=== PATIENT | male | born 1970 | race Caucasian/White ===

== ENCOUNTER 2022-02-22 09:05 | Emergency (ER) | payer OTHER ==
[~2022-02-22] VITALS: Ht 172.7 cm; Wt 99.8 kg
[2022-02-22 09:11] VITALS: BP 140/95
--- NOTE | 2022-02-22 09:16 | NUR ---
PT AMBULATED TO BED 07.
--- NOTE | 2022-02-22 09:33 | NUR ---
PT IN GOWN URINE OBTAINED
--- NOTE | 2022-02-22 09:42 | NUR ---
51YR OLD MALE BIB SELF C/O URINARY CATH PROBLEM/URGENCY X1WEEK. PT IS STATING THAT HIS TAYLOR NEEDS TO BE CHANGED. URGENCY WITH URINATION. 9/10 PAIN LEVEL. FLANK PAIN RADTIATES TO LUQ. SX FOR 1WEEK. A&OX4 NO DISTRESS NOTED. DENIES ABD PAIN V/D. PT IN GOWN RESTING IN BED. SIDE RAILS UPX1. NKDA
[2022-02-22] MEDS ORDERED: cephALEXin 500 MG CAP PO ONE (09:55)
[2022-02-22] MEDS ORDERED: COMMUNICATION ORDER MC ONE (10:20)
[2022-02-22] MEDS ORDERED: cefTRIAXone 1,000 MG VIAL ONE (10:26)
[2022-02-22] MEDS ORDERED: LIDOCAINE 2% 100 MG/5 ML UJET TP ONE (10:28)
--- NOTE | 2022-02-22 10:51 | NUR ---
TAYLOR REPLACED 16F. PATIENT TOLERATED INSERTION.
--- NOTE | 2022-02-22 11:51 | NUR ---
PENDING DC PAPERWORK
[2022-02-22] MEDS ORDERED: CEFP200T20 PO (12:29)
[2022-02-22 12:39] VITALS: BP 144/95
--- NOTE | 2022-02-22 12:39 | NUR ---
Patient discharged with v/s stable. Written and verbal after care instructions given and explained. Patient alert, oriented and verbalized understanding of instructions. Ambulatory with steady gait. All questions addressed prior to discharge. ID band removed. Patient advised to follow up with PMD. Rx of CEFPODOXIME given. Patient educated on indication of medication including possible reaction and side effects. Opportunity to ask questions provided and answered.
[2022-02-22 13:34] LABS: APPEARANCE,URINE CLOUDY (CLEAR); BILIRUBIN,URINE 1+ (NEGATIVE); BLOOD, URINE 3+ (NEGATIVE); COLOR,URINE OTHER (YELLOW); LEUKOCYTE ESTERASE ,URINE 1+ (NEGATIVE); NITRITE, URINE POSITIVE (NEGATIVE); UGLUCOSE NEGATIVE (NEGATIVE)
[2022-02-22 13:52] LABS: RBC,URINE 50-80 /HPF (0-5)
[2022-02-22 13:54] LABS: CALCIUM OXALATE CRYSTALS,UR 0-10 /HPF (None Seen)
== END 2022-02-22 12:39 | disposition home or self-care (01) ==
LOC: MED 09:05
DX: N39.0 Urinary tract infection, site not specified (principal); I10 Essential (primary) hypertension; Z79.1 Long term (current) use of non-steroidal anti-inflammatories (NSAID)
CPT/HCPCS: 51702; 81001; 81002; 87086; 87491; 99284; J0696